=== PATIENT | male | born 1985 | race Caucasian/White ===

== ENCOUNTER 2018-02-02 09:27 | Inpatient (IN) | payer MEDICAID ==
[~2018-02-02] VITALS: Ht 165.1 cm; Wt 88.5 kg
[2018-02-02] MEDS ORDERED: ASPIRIN 81MG TABLET PO STA (09:57)
[2018-02-02 10:26] LABS: BASOPHILS % 0.7 % (0.0-2.0); EOSINOPHILS % 4.1 % (0.0-5.0); HEMATOCRIT. 48.9 % (42.0-52.0); HEMOGLOBIN. 16.7 g/dL (14.0-18.0); LYMPHOCYTES % 27.2 % (20.0-50.0); MEAN CORPUSCULAR HEMOGLOBIN 28.5 pg (28.0-32.0); MEAN CORPUSCULAR VOLUME 83.2 fL (80.0-94.0); MEAN PLATELET VOLUME 8.9 fl (7.4-10.4); MONOCYTES % 6.5 % (2.0-8.0); NEUTROPHILS % 61.5 % (40.0-76.0); PLATELET 219 x1000/uL (130-400); RED BLOOD CELL COUNT 5.88 mill/uL (4.7-6.1)
[2018-02-02 10:31] LABS: PROTHROMBIN TIME 10.2 sec (9.4-11.6)
[2018-02-02 10:34] LABS: CHLORIDE 103 mEq/L (98-107)
[2018-02-02 10:40] LABS: CREATINE KINASE 290 IU/L (39-308); TROPONIN I < 0.02 ng/mL (0.00-0.04)
[2018-02-02 10:46] LABS: CREATINE KINASE MB FRACTION 2.9 ng/mL (0.5-3.6)
[2018-02-02 11:01] LABS: *AMPHETAMINES SCREEN URINE NEGATIVE (NEGATIVE); *BARBITURATES SCREEN URINE NEGATIVE (NEGATIVE); *BENZODIAZEPINES SCREEN URINE NEGATIVE (NEGATIVE); *COCAINE SCREEN URINE NEGATIVE (NEGATIVE); CANNABINOID URINE SCREEN NEGATIVE (NEGATIVE); METHADONE URINE SCREEN NEGATIVE (NEGATIVE); OPIATES URINE SCREEN NEGATIVE (NEGATIVE); PHENCYCLIDINE URINE SCREEN NEGATIVE (NEGATIVE)
[2018-02-02] MEDS ORDERED: ONDANSETRON HCL 4MG/2ML VIAL IV STA (11:06)
[2018-02-02] MEDS ORDERED: MORPHINE SULFATE 4 MG/ML CPJ (NOT FOR IM USE) IV STA (11:06)
[2018-02-02] MEDS ORDERED: NITROGLYCERIN OINT 1GM/INCH UDPKT TD STA (11:06)
[2018-02-02] MEDS ORDERED: NITROGLYCERIN 0.4MG TABLET SL SL PRN ×2 (11:15→12:30)
[2018-02-02] MEDS ORDERED: IPRATROPIUM/ALBUTEROL 0.5-3(2.5)MG/3ML NEB INH PRN (12:30)
[2018-02-02] MEDS ORDERED: LORAZEPAM 0.5MG TABLET PO PRN (12:30)
[2018-02-02] MEDS ORDERED: CLONIDINE 0.1MG TABLET PO PRN (12:30)
[2018-02-02] MEDS ORDERED: DIPHENHYDRAMINE 50MG/ML VIAL IV PRN (12:30)
[2018-02-02] MEDS ORDERED: DOCUSATE SODIUM 100MG CAPSULE PO PRN (12:30)
[2018-02-02] MEDS ORDERED: ACETAMINOPHEN 325MG TABLET PO PRN (12:30)
[2018-02-02] MEDS ORDERED: ONDANSETRON HCL 4MG/2ML VIAL IV PRN (12:30)
[2018-02-02] MEDS ORDERED: GUAIFENESIN 200MG/10ML SUGAR FREE UDC PO PRN (12:30)
[2018-02-02] MEDS ORDERED: MAGNESIUM/ALUMINUM HYDROXIDE/SIMETHICONE 30ML UDC PO PRN (12:30)
[2018-02-02] MEDS ORDERED: KETOROLAC 15MG/ML VIAL IV PRN (19:00)
[2018-02-02 20:35] LABS: CREATINE KINASE 228 IU/L (39-308); CREATINE KINASE MB FRACTION 2.5 ng/mL (0.5-3.6); TROPONIN I < 0.02 ng/mL (0.00-0.04)
[2018-02-02] MEDS ORDERED: ZOLPIDEM TARTRATE 5MG TABLET PO PRN (21:00)
[2018-02-02] MEDS ORDERED: NA PHOS,M-B/NA PHOS,DI-BA ENEMA 118ML PR PRN (21:00)
[2018-02-02] MEDS: SUCRALFATE 1 G/10 ML UDC PO SCH (21:36)
[2018-02-02 22:23] VITALS: BP 119/79
[2018-02-02 22:27] VITALS: BP 119/79
[2018-02-02] MEDS: FAMOTIDINE 20MG/2ML VIAL IV SCH (23:14)
[2018-02-02] MEDS: METOPROLOL TARTRATE 25MG TABLET PO SCH (23:15)
[2018-02-03 00:07] VITALS: BP 118/81
[2018-02-03 04:00] VITALS: BP 109/66
[2018-02-03 07:45] LABS: CREATINE KINASE 174 IU/L (39-308); CREATINE KINASE MB FRACTION 1.5 ng/mL (0.5-3.6); TROPONIN I < 0.02 ng/mL (0.00-0.04)
[2018-02-03 08:00] VITALS: BP 113/63
[2018-02-03] MEDS ORDERED: ASPIRIN 325MG EC TABLET PO SCH (09:00)
[2018-02-03] MEDS: SUCRALFATE 1 G/10 ML UDC PO SCH (09:20)
[2018-02-03] MEDS: METOPROLOL TARTRATE 25MG TABLET PO SCH (09:21)
[2018-02-03] MEDS: FAMOTIDINE 20MG/2ML VIAL IV SCH (09:26)
[2018-02-03 12:00] VITALS: BP 99/63
[2018-02-03 13:29] VITALS: BP 99/63
== END 2018-02-03 15:13 | disposition home or self-care (01) | DRG 243 ==
LOC: ER 11:50 → 7WST 12:04 → ENRESERV 19:26
PROVIDERS: ADMIT Internal Medicine; ATTEND Internal Medicine
DX: K21.9 Gastro-esophageal reflux disease without esophagitis (principal); E66.9 Obesity, unspecified; R74.0 Nonspecific elevation of levels of transaminase and lactic acid dehydrogenase [LDH]; Z79.82 Long term (current) use of aspirin; Z68.32 Body mass index [BMI] 32.0-32.9, adult; R73.9 Hyperglycemia, unspecified
CPT/HCPCS: 36415; 71045; 80053; 80061; 80305; 82550; 82553; 83036; 83690; 83880; 84443; 84484; 85025; 85610; 85730; 93005; 93970; 96374; 96375; 99291; J2270; J2405; J3490